=== PATIENT | female | born 1970 | race Caucasian/White ===

== ENCOUNTER 2018-03-09 09:05 | Outpatient (CLI) | payer MEDICARE, OTHER ==
[2018-03-09 10:31] LABS: ALT (SGPT) 14 U/L (8-55); AST (SGOT) 20 U/L (5-34); Albumin 4.7 g/dL (3.5-5.0); Alkaline Phosphatase 77 U/L (40-150); Anion Gap 12 mmol/L (10-20); BUN (Urea Nitrogen) 10 mg/dL (7.0-18.7); Bilirubin, Total 0.5 mg/dL (0.2-1.2); Calc. Creatinine Clearance 0 mL/min (70-130); Cardiac Risk 3.1 (Less than 4.5); Chloride 104 mmol/L (98-107); Cholesterol 187 mg/dl (< 200 Desired); Estimated GFR-MDRD 72; Globulin 2.7 g/dL (2.4-3.5); Glucose 102 mg/dL (70-105); HDL Cholesterol 60 mg/dL (>60 Neg Risk); LDL Cholesterol, Calculated 86 mg/dL; Potassium 4.7 mmol/L (3.5-5.1); Protein, Total 7.4 g/dL (6.0-8.3); Sodium 143 mmol/L (136-145); Triglycerides 206 mg/dL (Less than 150)
[2018-03-09 10:44] LABS: Carbon Dioxide 32 mmol/L (22-29)
[2018-03-09 10:47] LABS: Thyroid Stimulating Hormone 0.6327 uIU/mL (0.35-4.94)
[2018-03-09 11:08] LABS: Amphetamine Detected (NotDetected)
[2018-03-09 11:09] LABS: Barbiturates Screen Not Detected (NotDetected); Benzodiazepine Screen Not Detected (NotDetected); Cocaine Metabolite Screen Not Detected (NotDetected); Medtox Control Line Valid? VALID (VALID); Methadone Not Detected (NotDetected); Methamphetamine Not Detected (NotDetected); Opiate Screen Not Detected (NotDetected); Oxycodone Screen Not Detected (NotDetected); Phencyclidine (PCP) Not Detected (NotDetected); THC/Cannabinoid Screen Not Detected (NotDetected); Tricyclic Screen Detected (NotDetected)
[2018-03-09 17:15] LABS: Free T4 (Free Thyroxine) 0.97 ng/dL (0.70-1.48)
== END 2018-03-09 09:06 | disposition home or self-care (01) ==
LOC: MADLABBHPM 09:05
PROVIDERS: ATTEND Family Medicine
DX: F90.9 Attention-deficit hyperactivity disorder, unspecified type (principal); F41.8 Other specified anxiety disorders; E78.2 Mixed hyperlipidemia; R79.89 Other specified abnormal findings of blood chemistry; I10 Essential (primary) hypertension
CPT/HCPCS: 36415; 80053; 80061; 80306; 84439; 84443